=== PATIENT | female | born 1950 | race Caucasian/White ===

== ENCOUNTER 2018-01-02 09:16 | Emergency (ER) | payer OTHER ==
[~2018-01-02] VITALS: Ht 160 cm; Wt 70.3 kg
[2018-01-02] MEDS ORDERED: GLUCOPHAGE XR500 MG PO (09:23)
[2018-01-02] MEDS ORDERED: LOPRESSOR25 MG PO (09:25)
[2018-01-02] MEDS ORDERED: KEFLEX250 MG PO (09:25)
== END 2018-01-02 11:27 | disposition home or self-care (01) ==
LOC: ER 09:16
DX: J06.9 Acute upper respiratory infection, unspecified (principal)